=== PATIENT | male | born 1940 | race Caucasian/White ===

== ENCOUNTER 2017-10-11 21:21 | Emergency (ER) | payer OTHER ==
[~2017-10-11 21:21] MED LIST: ASCO-360 PO; MAGN250T10 PO; METF10004 PO; TAMS0.4C32 PO
[2017-10-11] MEDS ORDERED: ONDANSETRON ODT 4 MG TAB ONE (22:35)
[2017-10-11 22:36] LABS: BASOPHILS % (AUTO) 0.6 % (0.0-5.0); EOSINOPHILS % (AUTO) 0.6 % (0.0-8.0); HEMATOCRIT 40.3 % (42-54); LYMPHOCYTES % (AUTO) 9.6 % (21.0-51.0); MEAN CORPUSCULAR HEMOGLOBIN 30.1 pg (27.0-33.0); MEAN CORPUSCULAR HGB CONC 33.7 g/dL (32.0-36.0); MEAN CORPUSCULAR VOLUME 89.4 fL (79-99); MONOCYTES % (AUTO) 5.3 % (3.0-13.0); NEUTROPHILS % (AUTO) 83.9 % (40.0-77.0); PLATELET COUNT (AUTO) 264 K/uL (130-400); RED CELL DISTRIBUTION WIDTH 12.8 % (11.0-15.5); WHITE BLOOD COUNT (AUTO) 12.6 K/uL (4.8-10.8)
[2017-10-11 22:48] LABS: CREATININE 0.8 mg/dL (0.5-1.5); POTASSIUM 4.2 mmol/L (3.5-5.1)
[2017-10-11] MEDS ORDERED: OSELTAMIVIR PHOSPHATE 75 MG CAP ONE (23:25)
== END 2017-10-11 23:30 | disposition home or self-care (01) ==
LOC: EDH 21:21
DX: J11.1 Influenza due to unidentified influenza virus with other respiratory manifestations (principal); R11.2 Nausea with vomiting, unspecified; E11.9 Type 2 diabetes mellitus without complications; Z87.891 Personal history of nicotine dependence
CPT/HCPCS: 36415; 80048; 84484; 85025; 87804; 93005

== ENCOUNTER 2017-10-12 07:30 | Inpatient (IN) | payer OTHER ==
[2017-10-10 12:15] LABS: EOSINOPHILS % (AUTO) 3.2 % (0.0-8.0); HEMATOCRIT 44.1 % (42-54); LYMPHOCYTES % (AUTO) 25.5 % (21.0-51.0); MEAN CORPUSCULAR HEMOGLOBIN 30.5 pg (27.0-33.0); MEAN CORPUSCULAR HGB CONC 34.1 g/dL (32.0-36.0); MEAN CORPUSCULAR VOLUME 89.7 fL (79-99); MONOCYTES % (AUTO) 7.4 % (3.0-13.0); NEUTROPHILS % (AUTO) 62.9 % (40.0-77.0); PLATELET COUNT (AUTO) 270 K/uL (130-400); RED BLOOD CELL COUNT(AUTO) 4.92 MIL/uL (4.50-6.20); RED CELL DISTRIBUTION WIDTH 12.7 % (11.0-15.5); WHITE BLOOD COUNT (AUTO) 8.5 K/uL (4.8-10.8)
[2017-10-10 12:40] VITALS: BP 129/71
[~2017-10-12] VITALS: Ht 25.4 cm; Wt 87.6 kg
[~2017-10-12 07:30] MED LIST changes: +CEFAZOLIN SODIUM 1 GM VIAL IVP SCH; +DEXAMETHASONE SOD PHOSPHATE 10MG/ML 1ML VIAL ONE; +FENTANYL CITRATE PF 50 MCG/1 ML 2ML VIAL ONE; +GLYCOPYRROLATE 0.2 MG/ML 5 ML VIAL ONE; +LIDOCAINE HCL 4% LTA SOL 4 ML VIAL ONE; +LIDOCAINE HCL MPF 1% 5ML VIAL ONE; +LIDOCAINE PF 2% 5ML ABBOJECT ONE; +MIDAZOLAM HCL 1 MG/ML 2ML VIAL ONE; +NEOSTIGMINE METHYLSULFATE 1MG/ML IV ONE; +PHENYLEPHRINE HCL 10 MG/ML 1ML VIAL IV ONE; +PROPOFOL 10 MG/ML 20ML VIAL IV ONE; +ROCURONIUM BROMIDE 10MG/1ML 5ML VL ONE; +ROPIVACAINE 0.5% 5MG/ML 30ML IJ ONE; +SODIUM CHLORIDE 0.9% 10 ML VIAL ONE
[2017-10-17] VITALS (24 sets, daily range): BP systolic 119–162; BP diastolic 57–79
[2017-10-17] MEDS ORDERED: SODIUM CHLORIDE 0.9% 1000ML 1,000 ML IV ONE (10:25)
[2017-10-17] MEDS: CEFAZOLIN SODIUM 1 GM VIAL ONE ×2 (10:43→12:15)
[2017-10-17] MEDS ORDERED: GLYCOPYRROLATE 0.2 MG/ML 5 ML VIAL ONE (11:28)
[2017-10-17] MEDS ORDERED: DEXAMETHASONE SOD PHOSPHATE 10MG/ML 1ML VIAL ONE (11:28)
[2017-10-17] MEDS ORDERED: NEOSTIGMINE METHYLSULFATE 1MG/ML IV ONE (11:28)
[2017-10-17] MEDS ORDERED: ONDANSETRON HCL 4 MG/2 ML VIAL ONE (11:28)
[2017-10-17] MEDS ORDERED: SUCCINYLCHOLINE 200MG/10ML SYR ONE (11:28)
[2017-10-17] MEDS ORDERED: LIDOCAINE PF 2% 5ML ABBOJECT ONE (11:28)
[2017-10-17] MEDS ORDERED: MIDAZOLAM HCL 1 MG/ML 2ML VIAL ONE (11:29)
[2017-10-17] MEDS ORDERED: PROPOFOL 10 MG/ML 20ML VIAL IV ONE (11:29)
[2017-10-17] MEDS ORDERED: FENTANYL CITRATE PF 50 MCG/1 ML 5ML AMP IV ONE (11:30)
[2017-10-17] MEDS ORDERED: ROCURONIUM BROMIDE 10MG/1ML 5ML VL ONE (11:36)
[2017-10-17] MEDS ORDERED: ROPIVACAINE 0.5% 5MG/ML 30ML IJ ONE (11:36)
[2017-10-17] MEDS ORDERED: FENTANYL CITRATE PF 50 MCG/1 ML 2ML VIAL ONE ×2 (14:10→14:25)
[2017-10-17] MEDS ORDERED: DIPHENHYDRAMINE HCL 25 MG CAPSULE PO PRN (14:30)
[2017-10-17] MEDS ORDERED: DiphenhydrAMINE HCL 50 MG/ML VIAL IVP PRN (14:30)
[2017-10-17] MEDS ORDERED: TRAMADOL HCL 50 MG TABLET PO PRN (14:30)
[2017-10-17] MEDS ORDERED: FERROUS FUMARATE 324 MG TABLET PO PRN (14:30)
[2017-10-17] MEDS ORDERED: LIDOCAINE HCL-MPF 1% 2ML VIAL IVP PRN (14:30)
[2017-10-17] MEDS ORDERED: HYDROCODONE/ACETAMINOPHEN 5/325 MG TAB PO PRN (14:30)
[2017-10-17] MEDS ORDERED: POTASSIUM CHLORIDE 20MEQ/100ML 100 ML IV PRN (14:30)
[2017-10-17] MEDS ORDERED: POTASSIUM CHLORIDE 10% ELIXIR 20 MEQ/15 ML UDCUP PO PRN (14:30)
[2017-10-17] MEDS ORDERED: MEPERIDINE-PF 25 MG/ML SYG ONE ×2 (14:51→15:01)
[2017-10-17] MEDS: ACETAMINOPHEN 325 MG TAB PO SCH ×2 (15:45→20:47)
[2017-10-17] MEDS: INSULIN HUMULIN R 100 UNIT/ML 3ML SQ SCH (19:05)
[2017-10-17] MEDS: METFORMIN HCL 500 MG TABLET PO SCH (19:05)
[2017-10-17] MEDS: SODIUM CHLORIDE 0.9% 1000ML 1,000 ML IV SCH ×2 (19:06→23:46)
[2017-10-17] MEDS ORDERED: CEFAZOLIN 2GM / 50 ML 50 ML IV SCH (19:30)
[2017-10-17] MEDS: CEFAZOLIN SODIUM 1 GM VIAL IVP SCH (20:44)
[2017-10-17] MEDS: PREGABALIN 25 MG CAP PO SCH (20:45)
[2017-10-17] MEDS: FAMOTIDINE 20MG TAB 20 MG TAB PO SCH (20:46)
[2017-10-17] MEDS: ASPIRIN 325 MG TABLET PO SCH (20:46)
[2017-10-17] MEDS: CELECOXIB 200 MG CAP PO SCH (20:46)
[2017-10-17] MEDS: TAMSULOSIN HCL 0.4 MG CAP.ER.24H PO SCH (20:46)
[2017-10-17] MEDS: OXYCODONE HCL 5 MG TAB PO PRN (23:19)
[2017-10-18] MEDS: INSULIN HUMULIN R 100 UNIT/ML 3ML SQ SCH ×5 (00:21→20:43)
[2017-10-18] MEDS: ACETAMINOPHEN 325 MG TAB PO SCH ×6 (03:31→20:37)
[2017-10-18] MEDS: CEFAZOLIN SODIUM 1 GM VIAL IVP SCH (03:31)
[2017-10-18] MEDS: OXYCODONE HCL 5 MG TAB PO PRN ×3 (03:34→17:23)
[2017-10-18 05:08] VITALS: BP 148/70
[2017-10-18 05:28] LABS: MEAN CORPUSCULAR HEMOGLOBIN 30.1 pg (27.0-33.0); MEAN CORPUSCULAR HGB CONC 33.6 g/dL (32.0-36.0); MEAN CORPUSCULAR VOLUME 89.7 fL (79-99); PLATELET COUNT (AUTO) 262 K/uL (130-400); RED CELL DISTRIBUTION WIDTH 13.2 % (11.0-15.5); WHITE BLOOD COUNT (AUTO) 16.4 K/uL (4.8-10.8)
[2017-10-18 05:32] LABS: INR 0.99 (0.85-1.15); PROTHROMBIN TIME 10.4 SEC (9.6-11.6)
[2017-10-18 05:36] LABS: CREATININE 0.8 mg/dL (0.5-1.5)
[2017-10-18] MEDS: CELECOXIB 200 MG CAP PO SCH ×3 (09:00→20:37)
[2017-10-18] MEDS: PREGABALIN 25 MG CAP PO SCH ×3 (09:00→20:37)
[2017-10-18] MEDS: ASPIRIN 325 MG TABLET PO SCH ×3 (09:00→20:37)
[2017-10-18] MEDS: METFORMIN HCL 500 MG TABLET PO SCH ×3 (09:00→16:22)
[2017-10-18] MEDS: MAGNESIUM OXIDE 250 MG PO SCH (09:00)
[2017-10-18] MEDS: FAMOTIDINE 20MG TAB 20 MG TAB PO SCH ×3 (09:00→20:37)
[2017-10-18] MEDS: ASCORBIC ACID 500 MG TAB PO SCH ×2 (09:00→11:43)
[2017-10-18] MEDS: POLYETHYLENE GLYCOL 3350 17 GM POWD.PACK PO SCH ×2 (09:00→11:44)
[2017-10-18] MEDS: ONDANSETRON HCL 4 MG/2 ML VIAL IVP PRN ×2 (09:32→18:54)
[2017-10-18] MEDS ORDERED: MORPHINE SULFATE 2 MG/ML 1ML SYG IVP PRN (10:15)
[2017-10-18 11:39] VITALS: BP 141/71
[2017-10-18] MEDS: CALCIUM CARBONATE 500 MG TABLET PO PRN ×2 (11:44→17:15)
[2017-10-18] MEDS: PSYLLIUM SEED 1 EACH PACKET PO SCH ×2 (11:45→12:00)
[2017-10-18] MEDS ORDERED: PROMETHAZINE HCL 25 MG/ML 1ML AMPULE IM PRN (12:15)
[2017-10-18] MEDS ORDERED: HYDROMORPHONE 4MG/ML 1ML VIAL IVP PRN (14:00)
[2017-10-18 16:26] VITALS: BP 123/59
[2017-10-18] MEDS ORDERED: MORPHINE SULFATE 2 MG/ML 1ML SYG IM PRN (18:00)
[2017-10-18] MEDS: TAMSULOSIN HCL 0.4 MG CAP.ER.24H PO SCH (20:37)
[2017-10-18] MEDS: OXYCODONE HCL 5 MG TAB PO SCH (20:38)
[2017-10-18 21:10] VITALS: BP 138/63
[2017-10-19] MEDS: OXYCODONE HCL 5 MG TAB PO SCH ×5 (01:26→16:53)
[2017-10-19] MEDS: ACETAMINOPHEN 325 MG TAB PO SCH ×4 (03:53→20:20)
[2017-10-19 04:23] VITALS: BP 125/60
[2017-10-19] MEDS: INSULIN HUMULIN R 100 UNIT/ML 3ML SQ SCH ×4 (05:51→21:00)
[2017-10-19 06:05] LABS: HEMATOCRIT 30.5 % (42-54); MEAN CORPUSCULAR HEMOGLOBIN 31.9 pg (27.0-33.0); MEAN CORPUSCULAR HGB CONC 35.8 g/dL (32.0-36.0); MEAN CORPUSCULAR VOLUME 89.1 fL (79-99); PLATELET COUNT (AUTO) 202 K/uL (130-400); RED BLOOD CELL COUNT(AUTO) 3.42 MIL/uL (4.50-6.20); RED CELL DISTRIBUTION WIDTH 12.5 % (11.0-15.5); WHITE BLOOD COUNT (AUTO) 13.5 K/uL (4.8-10.8)
[2017-10-19 06:11] LABS: INR 1.02 (0.85-1.15); PROTHROMBIN TIME 10.7 SEC (9.6-11.6)
[2017-10-19 06:12] LABS: CREATININE 0.8 mg/dL (0.5-1.5); POTASSIUM 3.8 mmol/L (3.5-5.1)
[2017-10-19 08:05] VITALS: BP 151/72
[2017-10-19] MEDS: ASPIRIN 325 MG TABLET PO SCH ×2 (08:54→20:20)
[2017-10-19] MEDS: METFORMIN HCL 500 MG TABLET PO SCH ×2 (08:54→17:03)
[2017-10-19] MEDS: ASCORBIC ACID 500 MG TAB PO SCH (08:55)
[2017-10-19] MEDS: CELECOXIB 200 MG CAP PO SCH ×2 (08:55→20:20)
[2017-10-19] MEDS: FAMOTIDINE 20MG TAB 20 MG TAB PO SCH ×2 (08:55→20:20)
[2017-10-19] MEDS: POLYETHYLENE GLYCOL 3350 17 GM POWD.PACK PO SCH (08:55)
[2017-10-19] MEDS: PREGABALIN 25 MG CAP PO SCH ×2 (08:55→20:20)
[2017-10-19] MEDS: MAGNESIUM OXIDE 250 MG PO SCH (09:00)
[2017-10-19] MEDS: ONDANSETRON HCL 4 MG/2 ML VIAL IVP PRN (09:44)
[2017-10-19 11:49] VITALS: BP 115/56
[2017-10-19] MEDS: PSYLLIUM SEED 1 EACH PACKET PO SCH (12:10)
[2017-10-19] MEDS ORDERED: KETOROLAC TROMETHAMINE 15MG/ML IM PRN (12:15)
[2017-10-19] MEDS: SODIUM CHLORIDE 0.9% 1000ML 1,000 ML IV SCH ×2 (12:22→20:18)
[2017-10-19] MEDS ORDERED: PROMETHAZINE HCL 25 MG/ML 1ML AMPULE IM PRN (12:30)
[2017-10-19] MEDS: METOCLOPRAMIDE 10 MG/2 ML VIAL IVP SCH ×2 (13:44→20:18)
[2017-10-19] MEDS ORDERED: BISACODYL 5 MG TABLET.DR PO PRN (14:30)
[2017-10-19 16:36] VITALS: BP 123/58
[2017-10-19] MEDS: TAMSULOSIN HCL 0.4 MG CAP.ER.24H PO SCH (17:03)
[2017-10-19] MEDS ORDERED: CALCIUM CARBON 500MG CHEW TAB ONE (18:27)
[2017-10-19 20:39] LABS: APPEARANCE,URINE Clear (CLEAR); BILIRUBIN,URINE Negative (NEGATIVE); COLOR,URINE Yellow (YELLOW); GLUCOSE, URINE (UA) Negative (NEGATIVE); KETONES,URINE Negative (NEGATIVE); LEUKOCYTE ESTERASE ,URINE Negative (NEGATIVE); NITRATE,URINE Negative (NEGATIVE); OCCULT BLOOD,URINE Large (NEGATIVE); PROTEIN,URINE Negative (NEGATIVE); UROBILINOGEN,URINE 0.2 mg/dL (0.2-1.0)
[2017-10-19 20:49] LABS: BACTERIA,URINE None Seen /HPF (None Seen); SQUAMOUS EPITHELIAL CELL,UR 0-2 /LPF (0-2); WBC,URINE None Seen /HPF (0-1)
[2017-10-19] MEDS ORDERED: OXYCODONE HCL 5 MG TAB PO PRN (21:00)
[2017-10-19 21:10] VITALS: BP 149/68
[2017-10-20 00:26] VITALS: BP 119/58
[2017-10-20] MEDS: ACETAMINOPHEN 325 MG TAB PO SCH ×5 (01:51→23:48)
[2017-10-20] MEDS: METOCLOPRAMIDE 10 MG/2 ML VIAL IVP SCH ×4 (03:16→23:48)
[2017-10-20 04:29] VITALS: BP 122/50
[2017-10-20 04:50] LABS: HEMATOCRIT 30.7 % (42-54); MEAN CORPUSCULAR HEMOGLOBIN 30.2 pg (27.0-33.0); MEAN CORPUSCULAR HGB CONC 34.5 g/dL (32.0-36.0); MEAN CORPUSCULAR VOLUME 87.7 fL (79-99); PLATELET COUNT (AUTO) 213 K/uL (130-400); RED CELL DISTRIBUTION WIDTH 12.5 % (11.0-15.5); WHITE BLOOD COUNT (AUTO) 12.5 K/uL (4.8-10.8)
[2017-10-20 04:58] LABS: CREATININE 0.8 mg/dL (0.5-1.5); POTASSIUM 3.6 mmol/L (3.5-5.1)
[2017-10-20 05:08] LABS: INR 0.97 (0.85-1.15); PROTHROMBIN TIME 10.2 SEC (9.6-11.6)
[2017-10-20] MEDS: INSULIN HUMULIN R 100 UNIT/ML 3ML SQ SCH ×4 (05:46→21:17)
[2017-10-20] MEDS: POTASSIUM CHLORIDE 20 MEQ ERTAB PO PRN ×2 (05:47→11:38)
[2017-10-20 08:00] VITALS: BP 128/64
[2017-10-20] MEDS: METFORMIN HCL 500 MG TABLET PO SCH ×2 (08:15→16:55)
[2017-10-20] MEDS: POLYETHYLENE GLYCOL 3350 17 GM POWD.PACK PO SCH (08:15)
[2017-10-20] MEDS: FAMOTIDINE 20MG TAB 20 MG TAB PO SCH ×2 (08:15→21:11)
[2017-10-20] MEDS: ASPIRIN 325 MG TABLET PO SCH ×2 (08:15→21:11)
[2017-10-20] MEDS: CELECOXIB 200 MG CAP PO SCH ×2 (08:15→21:11)
[2017-10-20] MEDS: ASCORBIC ACID 500 MG TAB PO SCH (08:15)
[2017-10-20] MEDS: MAGNESIUM OXIDE 250 MG PO SCH (08:16)
[2017-10-20] MEDS: PREGABALIN 25 MG CAP PO SCH ×2 (08:16→21:11)
[2017-10-20 11:31] VITALS: BP 107/52
[2017-10-20] MEDS: PSYLLIUM SEED 1 EACH PACKET PO SCH (11:38)
[2017-10-20] MEDS ORDERED: SODIUM CHLORIDE 0.9% 1000ML 1,000 ML IV ONE (14:26)
[2017-10-20] MEDS: CALCIUM CARBON 500MG CHEW TAB PO PRN ×2 (14:27→15:29)
[2017-10-20] MEDS ORDERED: BISACODYL 10 MG SUPP.RECT RC PRN (14:30)
[2017-10-20 14:51] LABS: HEMATOCRIT 29.6 % (42-54)
[2017-10-20 16:14] VITALS: BP 136/73
[2017-10-20 20:36] VITALS: BP 140/64
[2017-10-20] MEDS: TAMSULOSIN HCL 0.4 MG CAP.ER.24H PO SCH (21:11)
[2017-10-21] VITALS: BP 127/64
[2017-10-21 04:09] VITALS: BP 131/61
[2017-10-21 05:11] LABS: HEMATOCRIT 29.4 % (42-54); MEAN CORPUSCULAR HEMOGLOBIN 30.4 pg (27.0-33.0); MEAN CORPUSCULAR HGB CONC 34.3 g/dL (32.0-36.0); MEAN CORPUSCULAR VOLUME 88.8 fL (79-99); PLATELET COUNT (AUTO) 244 K/uL (130-400); RED BLOOD CELL COUNT(AUTO) 3.31 MIL/uL (4.50-6.20); RED CELL DISTRIBUTION WIDTH 12.7 % (11.0-15.5); WHITE BLOOD COUNT (AUTO) 11.7 K/uL (4.8-10.8)
[2017-10-21 05:31] LABS: CREATININE 0.7 mg/dL (0.5-1.5); POTASSIUM 3.6 mmol/L (3.5-5.1)
[2017-10-21] MEDS: INSULIN HUMULIN R 100 UNIT/ML 3ML SQ SCH (06:36)
[2017-10-21 08:00] VITALS: BP 155/68
[2017-10-21] MEDS ORDERED: ASPI-1012 PO (08:54)
[2017-10-21] MEDS ORDERED: ACET1TAB25 PO (08:55)
[2017-10-21] MEDS ORDERED: PANT40TA25 PO (08:55)
[2017-10-21] MEDS ORDERED: TRAM50TA4 PO (08:56)
[2017-10-21] MEDS ORDERED: DOCU240C25 PO (08:57)
[2017-10-21] MEDS: MAGNESIUM OXIDE 250 MG PO SCH (09:00)
[2017-10-21] MEDS: POLYETHYLENE GLYCOL 3350 17 GM POWD.PACK PO SCH (09:14)
[2017-10-21] MEDS: FAMOTIDINE 20MG TAB 20 MG TAB PO SCH (09:14)
[2017-10-21] MEDS: CELECOXIB 200 MG CAP PO SCH (09:14)
[2017-10-21] MEDS: ASPIRIN 325 MG TABLET PO SCH (09:14)
[2017-10-21] MEDS: METFORMIN HCL 500 MG TABLET PO SCH (09:14)
[2017-10-21] MEDS: ASCORBIC ACID 500 MG TAB PO SCH (09:14)
[2017-10-21] MEDS: PREGABALIN 25 MG CAP PO SCH (09:14)
[2017-10-21] MEDS: ACETAMINOPHEN 325 MG TAB PO SCH (09:16)
== END 2017-10-21 12:30 | disposition home health service (06) | DRG 470 ==
LOC: UNDOADMIN 10-14 07:16 → DAHIP 10-14 07:16 → 4BH 10-17 15:26
PROVIDERS: ADMIT Orthopaedic Surgery; ATTEND Orthopaedic Surgery
PROC: 0SR902Z Replacement of Right Hip Joint with Metal on Polyethylene Synthetic Substitute, Open Approach (ICD-10-PCS; principal; 2017-10-17 12:42)
DX: M16.11 Unilateral primary osteoarthritis, right hip (principal); E11.51 Type 2 diabetes mellitus with diabetic peripheral angiopathy without gangrene; E11.65 Type 2 diabetes mellitus with hyperglycemia; E87.1 Hypo-osmolality and hyponatremia; E78.5 Hyperlipidemia, unspecified; G89.29 Other chronic pain; I10 Essential (primary) hypertension; E78.00 Pure hypercholesterolemia, unspecified; R31.9 Hematuria, unspecified; K59.00 Constipation, unspecified; N40.1 Benign prostatic hyperplasia with lower urinary tract symptoms; F10.21 Alcohol dependence, in remission; R33.8 Other retention of urine; Z87.891 Personal history of nicotine dependence; Z79.82 Long term (current) use of aspirin
CPT/HCPCS: 36415; 73502; 76770; 80048; 81001; 82948; 85025; 85027; 85610; 88304; 88311; A4218; A4344; J0330; J0690; J1100; J1815; J2001; J2175; J2250; J2370; J2405; J2550; J2704; J2710; J2765; J2795; J3010; J3490; J7030